=== PATIENT | male | born 1945 | race American Indian/Alaskan Native ===

== ENCOUNTER 2020-02-14 17:41 | Inpatient (IN) | payer MEDICARE ==
--- NOTE | 2020-02-14 19:14 | Emergency Department Report ---
- General Chief complaint: Altered Mental Status Stated complaint: ALTERED MENTAL STATUS PUI?: Yes Time Seen by Provider: 02/14/20 18:43 Source: patient, EMS Mode of arrival: Stretcher Limitations: Other - History of Present Illness Initial comments: Chief complaint: Decreased appetite HPI: This is a 75-year-old male with history of dementia schizoaffective disorder who presents with poor appetite. Patient is a resident of [facility] and for support. Patient seemed a little weak. He had not eaten food today. Due to multiple residents with COVID-19 exposures, medical staff wanted patient to be evaluated. Patient denies any discomfort. He denies any plaints. MD Complaint: generalized weakness, lack of energy -: Gradual, This morning Location: generalized Severity: mild Consistency: constant Improves with: none Worsens with: none Context: other (Multiple residents at retirement facility with COVID-19 infection) Associated Symptoms: denies other symptoms - Related Data Allergies Allergy/AdvReac Type Severity Reaction Status Date / Time No Known Allergies Allergy Unverified 02/14/20 19:43 ED Review of Systems ROS: Stated complaint: ALTERED MENTAL STATUS Other details as noted in HPI Comment: All other systems reviewed and negative Constitutional: denies: fever, malaise Respiratory: denies: cough Cardiovascular: denies: chest pain Gastrointestinal: denies: abdominal pain, nausea, vomiting Musculoskeletal: denies: back pain ED Past Medical Hx - Past Medical History Previous Medical History?: Yes Hx Hypertension: Yes Hx Psychiatric Treatment: Yes (Schizo affective) Hx Dementia: Yes - Social History Smoking Status: Never Smoker Substance Use Type: None ED Physical Exam - General Limitations: Other General appearance: alert, in no apparent distress, other (Alert, cooperative, pleasant, answers questions appropriately) - Head Head exam: Present: atraumatic, normocephalic - Eye Eye exam: Present: normal appearance - ENT ENT exam: Present: mucous membranes moist - Neck Neck exam: Present: normal inspection, full ROM - Respiratory Respiratory exam: Present: normal lung sounds bilaterally. Absent: respiratory distress, wheezes, rales - Cardiovascular Cardiovascular Exam: Present: regular rate, normal rhythm, normal heart sounds. Absent: systolic murmur, diastolic murmur, rubs, gallop - GI/Abdominal GI/Abdominal exam: Present: soft, normal bowel sounds. Absent: distended, tenderness, guarding, rebound - Rectal Rectal exam: Present: deferred - Extremities Exam Extremities exam: Present: normal inspection - Neurological Exam Neurological exam: Present: alert, other (Oriented to name and location) - Psychiatric Psychiatric exam: Present: normal mood, flat affect - Skin Skin exam: Present: warm, dry, intact, normal color. Absent: rash ED Course Vital Signs 02/14/20 19:30 Temperature 97.6 F Pulse Rate 71 Respiratory 20 Rate Blood Pressure 113/66 [Left] O2 Sat by Pulse 96 Oximetry ED Medical Decision Making - Lab Data Result diagrams: 02/14/20 19:24 02/14/20 19:24 - Radiology Data Radiology results: report reviewed XR chest 1V ap INDICATION / CLINICAL INFORMATION: hx of covid 19 exposure. COMPARISON: None FINDINGS: Heart size and pulmonary vasculature are within normal limits. There are patchy airspace opacities involving the right mid and lower lung, with a peripheral predominance. Left lung is essentially clear. There is no pleural effusion or pneumothorax. IMPRESSION: Patchy airspace opacity in the right mid and lower lung, most compatible with pneumonia. Findings are in keeping with reported history of COVID 19 exposure. - Medical Decision Making Mr. Valenzuela is a 75-year-old male with history of schizoaffective disorder dementia who presents with functional decline of the last day with poor appetite and generalized weakness. With multiple COVID-19 exposures at skilled nurse facility, patient does have multifocal pneumonia right and lower lobe infiltrates. Suspected COVID-19 infection. Patient will be admitted to the hospital service. Critical care attestation.: If time is entered above; I have spent that time in minutes in the direct care of this critically ill patient, excluding procedure time. ED Disposition Clinical Impression: Multifocal pneumonia, Suspected COVID-19 virus infection Disposition: OP ADMIT IP TO THIS HOSP Is pt being admited?: Yes Does the pt Need Aspirin: No Condition: Stable Instructions: Bacterial Pneumonia (ED) Referrals: [facility] [Other] - 3-5 Days
[2020-02-14 19:51] LABS: Basophils # (Auto) 0.1 K/mm3 (0.0-0.1); Basophils % (Auto) 1.1 % (0.0-1.8); Hemoglobin 12.1 gm/dl (11.8-15.2); Lymphocytes # (Auto) 0.4 K/mm3 (1.2-5.4); Lymphocytes % (Auto) 7.6 % (13.4-35.0); Mean Corpuscular HGB Conc 34 % (32-34); Mean Corpuscular Volume 86 fl (84-94); Monocytes # (Auto) 0.5 K/mm3 (0.0-0.8); Monocytes % (Auto) 11.1 % (0.0-7.3); Platelet Count 201 K/mm3 (140-440); Red Blood Count 4.19 M/mm3 (3.65-5.03)
--- NOTE | 2020-02-14 19:54 | XRay Report ---
XR chest 1V ap INDICATION / CLINICAL INFORMATION: hx of covid 19 exposure. COMPARISON: None FINDINGS: Heart size and pulmonary vasculature are within normal limits. There are patchy airspace opacities in volving the right mid and lower lung, with a peripheral predominance. Left lung is essentially clear. There is no pleural effusion or pneumothorax. IMPRESSION: Patchy airspace opacity in the right mid and lower lung, most compatible with pneumonia. Findings are in keeping with reported history of COVID 19 exposure. Signer Name: Joe Ayala MD Signed: 02/14/2020 7:50 PM Workstation Name: [id number]
[2020-02-14 20:16] LABS: BUN/Creatinine Ratio 20; Blood Urea Nitrogen 26 mg/dL (9-20); Calcium 8.3 mg/dL (8.4-10.2)
[2020-02-14 20:44] LABS: Bilirubin,Urine NEG (Negative); Blood,Urine SM (Negative); Color,Urine Yellow (Yellow); Mucus,Urine 1+ /HPF
[2020-02-14] MEDS ORDERED: cefTRIAXone/NS 1 GM/50 ML 1 GM/50 ML BAG IV ONE ×2 (22:37→23:29)
[2020-02-14] MEDS ORDERED: dexAMETHasone 20 MG/5 ML VIAL IV ONE (22:37)
[2020-02-14] MEDS ORDERED: ACETAMINOPHEN 325 MG TAB PO PRN (22:54)
[2020-02-14] MEDS ORDERED: MAGNESIUM HYDROXIDE (MOM) ORAL LIQD UDC PO PRN (22:54)
[2020-02-14] MEDS ORDERED: MORPHINE 2 MG/1 ML INJ IV PRN (22:54)
[2020-02-14] MEDS ORDERED: ONDANSETRON 4 MG/2 ML INJ IV PRN (22:54)
[2020-02-14] MEDS ORDERED: AZITHROMYCIN 500 MG in SODIUM CHLORIDE 0.9% 250ML 250 ML IV ONE (23:00)
--- NOTE | 2020-02-14 23:05 | History and Physical Report ---
History of Present Illness Date of examination: 02/14/20 Date of admission: 02/14/2020 Chief complaint: Generalized Weakness. History of present illness: 75-year-old male with known history of dementia, schizoaffective disorder presenting to the emergency room today with complaint of poor appetite. Patient is a resident of an assisted living facility [facility]. He has been feeling weak lately. He has also had decreased oral intake. Multiple residents was said to have been Covid 19 positive lately and therefore assisted living facility once patient evaluated for Covid. Patient is not a very good historian however he was able to answer questions appropriately. work-up in the emergency room today reveals multifocal pneumonia. Patient was started on empiric IV antibiotics and also to be ruled out for Covid. Past History Past Medical History: hypertension, other (Dementia,Schizoaffective disorder) Past Surgical History: No surgical history Social history: other (Resides in an assited living facility) Family history: no significant family history Medications and Allergies Allergies Allergy/AdvReac Type Severity Reaction Status Date / Time No Known Allergies Allergy Unverified 02/14/20 19:43 Active Meds: Active Medications Acetaminophen (Tylenol) 650 mg PO Q4H PRN PRN Reason: Pain MILD(1-3)/Fever >100.5/KNOWLES Enoxaparin Sodium (Enoxaparin) 40 mg SUB-Q QDAY@2200 KADEN; Protocol Azithromycin 500 mg/ Sodium (Chloride) 250 mls @ 250 mls/hr IV ONCE ONE; Protocol Stop: 02/14/20 23:59 Ceftriaxone Sodium (Rocephin/Ns 1 Gm/50 Ml) 1 gm in 50 mls @ 100 mls/hr IV ONCE ONE; Protocol Stop: 02/14/20 23:06 Sodium Chloride (Nacl 0.9% 1000 Ml) 1,000 mls @ 75 mls/hr IV DIRECT KADEN Ceftriaxone Sodium (Rocephin/Ns 2 Gm/100 Ml) 2 gm in 100 mls @ 200 mls/hr IV Q24HR KADEN; Protocol Azithromycin 500 mg/ Sodium (Chloride) 250 mls @ 250 mls/hr IV Q24HR KADEN; Protocol Magnesium Hydroxide (Milk Of Magnesia) 30 ml PO Q4H PRN PRN Reason: Constipation Morphine Sulfate (Morphine) 2 mg IV Q4H PRN PRN Reason: Pain, Moderate (4-6) Ondansetron HCl (Zofran) 4 mg IV Q8H PRN PRN Reason: Nausea And Vomiting Sodium Chloride (Sodium Chloride Flush Syringe 10 Ml) 10 ml IV BID KADEN Sodium Chloride (Sodium Chloride Flush Syringe 10 Ml) 10 ml IV PRN PRN PRN Reason: LINE FLUSH Review of Systems ROS unobtainable: due to mental status Constitutional: weakness, no fever, no chills, no night sweats Ears, nose, mouth and throat: no nasal congestion, no sore throat Cardiovascular: no chest pain, no palpitations Respiratory: no cough, no shortness of breath Gastrointestinal: no abdominal pain, no nausea, no vomiting, no diarrhea Genitourinary Male: no dysuria, no hematuria, no nocturia Musculoskeletal: no neck pain, no low back pain Integumentary: no rash, no pruritis Neurological: no headaches, no confusion Psychiatric: no anxiety, no depression Exam - Constitutional Vitals: Temp Pulse Resp BP Pulse Ox 97.6 F 71 20 113/66 96 02/14/20 19:30 02/14/20 19:30 02/14/20 19:30 02/14/20 19:30 02/14/20 19:30 General appearance: Present: no acute distress, well-nourished - EENT Eyes: Present: PERRL, EOM intact. Absent: scleral icterus ENT: hearing intact, clear oral mucosa, dentition normal - Neck Neck: Present: supple, normal ROM - Respiratory Respiratory effort: normal Respiratory: bilateral: rales (Bibasilar) - Cardiovascular Rhythm: regular Heart Sounds: Present: S1 & S2. Absent: systolic murmur, diastolic murmur, rub - Extremities Extremities: no ischemia, pulses intact, pulses symmetrical, No edema, Full ROM Peripheral Pulses: within normal limits - Abdominal General gastrointestinal: Present: soft, non-tender, non-distended, normal bowel sounds. Absent: mass - Integumentary Integumentary: Present: clear, warm, dry. Absent: rash - Musculoskeletal Musculoskeletal: strength equal bilaterally - Psychiatric Psychiatric: appropriate mood/affect, intact judgment & insight, memory intact, cooperative - Neurologic Neurologic: no focal deficits, moves all extremities, other (AOX2) Results - Labs CBC & Chem 7: 02/15/20 05:19 02/15/20 05:19 Labs: Abnormal lab results 02/14/20 02/14/20 Range/Units 19:24 19:24 RDW 13.0 L (13.2-15.2) % Lymph % (Auto) 7.6 L (13.4-35.0) % [place] % (Auto) 11.1 H (0.0-7.3) % Lymph # (Auto) 0.4 L (1.2-5.4) K/mm3 Seg Neutrophils % 80.2 H (40.0-70.0) % Sodium 134 L (137-145) mmol/L Chloride 95.3 L (98-107) mmol/L BUN 26 H (9-20) mg/dL Calcium 8.3 L (8.4-10.2) mg/dL Assessment and Plan - Patient Problems (1) Multifocal pneumonia Current Visit: Yes Status: Acute Plan to address problem: Patient placed on empiric IV antibiotics. We await blood culture results. (2) Suspected COVID-19 virus infection Current Visit: Yes Status: Acute Plan to address problem: Patient placed on isolation precautions. We will place consult to infectious disease for evaluation. (3) DVT prophylaxis Current Visit: Yes Status: Acute Plan to address problem: Patient placed on subcutaneous Lovenox. (4) Full code status Current Visit: Yes Status: Acute
[2020-02-14] MEDS ORDERED: dexAMETHasone 20 MG/5 ML VIAL ONE (23:29)
[2020-02-15 01:30] LABS: C-Reactive Protein 9.6 mg/dL (0.00-1.30)
[2020-02-15 06:21] LABS: BUN/Creatinine Ratio 22; Blood Urea Nitrogen 24 mg/dL (9-20); Calcium 8.3 mg/dL (8.4-10.2); Hemolysis Index 5
[2020-02-15 06:22] LABS: Basophils % (Auto) 0.2 % (0.0-1.8); Hematocrit 34.3 % (35.5-45.6); Hemoglobin 11.4 gm/dl (11.8-15.2); Lymphocytes # (Auto) 0.5 K/mm3 (1.2-5.4); Lymphocytes % (Auto) 11.4 % (13.4-35.0); Mean Corpuscular HGB Conc 33 % (32-34); Mean Corpuscular Volume 86 fl (84-94); Monocytes # (Auto) 0.2 K/mm3 (0.0-0.8); Monocytes % (Auto) 6.1 % (0.0-7.3); Platelet Count 206 K/mm3 (140-440); Red Blood Count 3.98 M/mm3 (3.65-5.03); Red Cell Distribution Width 13.4 % (13.2-15.2)
[2020-02-15 06:32] LABS: INR 1.04 (0.87-1.13)
[2020-02-15] MEDS: cefTRIAXone/NS 2 GM/100 ML 2 GM/100 ML BAG IV SCH (11:01)
[2020-02-15] MEDS: SODIUM CHLORIDE 0.9% 1000 ML 1,000 ML IV SCH (11:01)
[2020-02-15] MEDS: AZITHROMYCIN 500 MG in SODIUM CHLORIDE 0.9% 250ML 250 ML IV SCH (12:31)
--- NOTE | 2020-02-15 14:43 | Consultation ---
History of Present Illness - Reason for Consult Consult date: 02/15/20 COVID-19 Requesting physician: ARAVIND GEORGES - History of Present Illness The patient is a 75-year-old with dementia, schizoaffective disorder, resident of an assisted living facility was admitted to the hospital with decreased appetite. There has been a Covid 19 outbreak there. Work-up in the emergency room was concerning for multifocal pneumonia. COVID-19 test came back positive, hence infectious diseases was consulted for additional evaluation. Patient is afebrile. He is on oxygen by nasal cannula at 2 L/min. Labs revealed procalcitonin 0.32, CRP 9.6, ferritin 1839 Review of Systems: reviewed in the chart, unable to obtain directly due to PPE preservation and minimize risk of transmission Past History Past Medical History: hypertension, other (Dementia,Schizoaffective disorder) Past Surgical History: No surgical history Social history: other (Resides in an assited living facility) Family history: no significant family history Medications and Allergies Allergies Allergy/AdvReac Type Severity Reaction Status Date / Time No Known Allergies Allergy Unverified 02/14/20 19:43 Active Meds: Active Medications Acetaminophen (Tylenol) 650 mg PO Q4H PRN PRN Reason: Pain MILD(1-3)/Fever >100.5/KNOWLES Dexamethasone (Decadron) 6 mg IV DAILY KADEN Stop: 02/25/20 10:01 Enoxaparin Sodium (Enoxaparin) 40 mg SUB-Q QDAY@2200 KADEN; Protocol Sodium Chloride (Nacl 0.9% 1000 Ml) 1,000 mls @ 75 mls/hr IV DIRECT KADEN Last Admin: 02/15/20 11:01 Dose: 75 mls/hr Documented by: Ceftriaxone Sodium (Rocephin/Ns 2 Gm/100 Ml) 2 gm in 100 mls @ 200 mls/hr IV Q24HR KADEN; Protocol Last Admin: 02/15/20 11:01 Dose: 200 mls/hr Documented by: Azithromycin 500 mg/ Sodium (Chloride) 250 mls @ 250 mls/hr IV Q24HR KADEN; Protocol Last Admin: 02/15/20 12:31 Dose: 250 mls/hr Documented by: Magnesium Hydroxide (Milk Of Magnesia) 30 ml PO Q4H PRN PRN Reason: Constipation Morphine Sulfate (Morphine) 2 mg IV Q4H PRN PRN Reason: Pain, Moderate (4-6) Ondansetron HCl (Zofran) 4 mg IV Q8H PRN PRN Reason: Nausea And Vomiting Sodium Chloride (Sodium Chloride Flush Syringe 10 Ml) 10 ml IV BID KADEN Last Admin: 02/15/20 11:01 Dose: 10 ml Documented by: Sodium Chloride (Sodium Chloride Flush Syringe 10 Ml) 10 ml IV PRN PRN PRN Reason: LINE FLUSH Physical Examination - Physical Exam Narrative exam: Physical Exam (reviewed in chart due to PPE conservation and minimize risk of transmission) Constitutional: limited due to PPE conservation strategy Head, Ears, Nose: limited due to PPE conservation strategy Eyes: limited due to PPE conservation strategy Neck: limited due to PPE conservation strategy Oral: limited due to PPE conservation strategy Cardiovascular: limited due to PPE conservation strategy Respiratory: limited due to PPE conservation strategy GI: limited due to PPE conservation strategy Musculoskeletal: limited due to PPE conservation strategy Skin: limited due to PPE conservation strategy Hem/Lymphatic: limited due to PPE conservation strategy Psych: limited due to PPE conservation strategy Neurological: limited due to PPE conservation strategy - Constitutional Vitals: Vital Signs Temp Pulse Resp BP Pulse Ox 97.3 F L 69 20 121/74 96 02/15/20 11:51 02/15/20 11:51 02/15/20 11:51 02/15/20 11:51 02/15/20 11:51 Temperature -Last 24 Hours Temperature 97.3 F Temperature 97.6 F Results - Labs CBC & Chem 7: 02/15/20 05:19 02/15/20 05:19 Labs: Abnormal lab results 02/14/20 02/14/20 02/14/20 Range/Units 19:24 19:24 23:12 WBC (4.5-11.0) K/mm3 Hgb (11.8-15.2) gm/dl Hct (35.5-45.6) % RDW 13.0 L (13.2-15.2) % Lymph % (Auto) 7.6 L (13.4-35.0) % [place] % (Auto) 11.1 H (0.0-7.3) % Lymph # (Auto) 0.4 L (1.2-5.4) K/mm3 Seg Neutrophils % 80.2 H (40.0-70.0) % D-Dimer 315.95 H (0-234) ng/mlDDU Sodium 134 L (137-145) mmol/L Chloride 95.3 L (98-107) mmol/L BUN 26 H (9-20) mg/dL Glucose (75-100) mg/dL Calcium 8.3 L (8.4-10.2) mg/dL Ferritin (30.0-300.0) ng/mL Lactate Dehydrogenase (91-180) units/L C-Reactive Protein (0.00-1.30) mg/dL Coronavirus (PCR) (Negative) 02/14/20 02/14/20 02/15/20 Range/Units 23:12 23:12 05:19 WBC 4.0 L (4.5-11.0) K/mm3 Hgb 11.4 L (11.8-15.2) gm/dl Hct 34.3 L (35.5-45.6) % RDW (13.2-15.2) % Lymph % (Auto) 11.4 L (13.4-35.0) % [place] % (Auto) (0.0-7.3) % Lymph # (Auto) 0.5 L (1.2-5.4) K/mm3 Seg Neutrophils % 82.3 H (40.0-70.0) % D-Dimer (0-234) ng/mlDDU Sodium (137-145) mmol/L Chloride (98-107) mmol/L BUN (9-20) mg/dL Glucose 74 L (75-100) mg/dL Calcium (8.4-10.2) mg/dL Ferritin 1839.0 H (30.0-300.0) ng/mL Lactate Dehydrogenase 249 H (91-180) units/L C-Reactive Protein 9.60 H (0.00-1.30) mg/dL Coronavirus (PCR) (Negative) 02/15/20 02/15/20 Range/Units 05:19 Unknown WBC (4.5-11.0) K/mm3 Hgb (11.8-15.2) gm/dl Hct (35.5-45.6) % RDW (13.2-15.2) % Lymph % (Auto) (13.4-35.0) % [place] % (Auto) (0.0-7.3) % Lymph # (Auto) (1.2-5.4) K/mm3 Seg Neutrophils % (40.0-70.0) % D-Dimer (0-234) ng/mlDDU Sodium (137-145) mmol/L Chloride (98-107) mmol/L BUN 24 H (9-20) mg/dL Glucose 107 H (75-100) mg/dL Calcium 8.3 L (8.4-10.2) mg/dL Ferritin (30.0-300.0) ng/mL Lactate Dehydrogenase (91-180) units/L C-Reactive Protein (0.00-1.30) mg/dL Coronavirus (PCR) Positive A (Negative) - Imaging and Cardiology Chest x-ray: report reviewed, image reviewed (patchy air space disease) Assessment and Plan Cultures: Coronavirus PCR: Positive 02/15/2020 blood culture: In process A/P: 75-year-old with dementia, schizoaffective disorder, resident of an assisted living facility was admitted to the hospital with decreased appetite. There has been a Covid 19 outbreak there: #Bilateral pneumonia: Secondary to COVID-19 #Acute hypoxic respiratory failure: On oxygen #Leukopenia: Likely secondary to COVID-19 Recs: IV/PO Dexamethasone 6 mg daily x 10 days IV remdesivir ordered for 5 days Continue empiric antibiotics for now, recheck procalcitonin tomorrow prophylactic anticoagulation based on d-dimer trend ferritin, d-dimer, CRP every 2-3 days for risk stratification and to asses s disease progression Nader Tapia MD, FACP [facility] ([facility] O: [phone] F: [phone]
[2020-02-15] MEDS ORDERED: REMDESIVIR 200 MG in SODIUM CHLORIDE 0.9% 250ML 250 ML IV ONE (17:00)
[2020-02-15] MEDS ORDERED: REMDESIVIR 100 MG VIAL IV ONE (17:00)
--- NOTE | 2020-02-15 17:28 | Progress Note ---
Assessment and Plan Assessment and plan: --Covid 19 positive --Covid positive multifocal pneumonia; Continue empiric antibiotics Follow cultures, supportive care Oxygen titrate O2 sats to more than 90% Home oxygen evaluation at discharge --PUI/high suspicion for COVID-19 positive COVID-19 test positive Contact and droplet isolation Follow inflammatory markers ID following --Acute hypoxic respiratory failure; requiring oxygen Closely monitor, titrate O2 sats to more than 90% Evaluate for home oxygen at discharge --DVT prophylaxis; Lovenox --Full CODE STATUS We will closely monitor the patient and adjust management as needed Plan of care reviewed with the patient and his nurse History Interval history: I have seen and examined the patient at the bedside Patient's chart and medications reviewed Patient is confused, minimally communicative Vital signs reviewed Covid PCR positive Hospitalist Physical - Constitutional Vitals: Temp Pulse Resp BP Pulse Ox 97.3 F L 69 20 121/74 96 02/15/20 11:51 02/15/20 11:51 02/15/20 11:51 02/15/20 11:51 02/15/20 11:51 General appearance: Present: no acute distress, well-nourished - EENT Eyes: Present: PERRL, EOM intact - Neck Neck: Present: supple, normal ROM - Respiratory Respiratory effort: normal Respiratory: bilateral: diminished, rhonchi, negative: rales, wheezing - Cardiovascular Rhythm: regular Heart Sounds: Present: S1 & S2 - Extremities Extremities: no ischemia, No edema - Abdominal General gastrointestinal: soft, non-tender, non-distended - Integumentary Integumentary: Present: clear, warm - Psychiatric Psychiatric: appropriate mood/affect, other (Confused) - Neurologic Neurologic: moves all extremities Results - Labs CBC & Chem 7: 02/15/20 05:19 02/15/20 05:19 Labs: Laboratory Last Values WBC 4.0 K/mm3 (4.5-11.0) L 02/15/20 05:19 RBC 3.98 M/mm3 (3.65-5.03) 02/15/20 05:19 Hgb 11.4 gm/dl (11.8-15.2) L 02/15/20 05:19 Hct 34.3 % (35.5-45.6) L 02/15/20 05:19 MCV 86 fl (84-94) 02/15/20 05:19 MCH 29 pg (28-32) 02/15/20 05:19 MCHC 33 % (32-34) 02/15/20 05:19 RDW 13.4 % (13.2-15.2) 02/15/20 05:19 Plt Count 206 K/mm3 (140-440) 02/15/20 05:19 Lymph % (Auto) 11.4 % (13.4-35.0) L 02/15/20 05:19 [place] % (Auto) 6.1 % (0.0-7.3) 02/15/20 05:19 Eos % (Auto) 0.0 % (0.0-4.3) 02/15/20 05:19 Baso % (Auto) 0.2 % (0.0-1.8) 02/15/20 05:19 Lymph # (Auto) 0.5 K/mm3 (1.2-5.4) L 02/15/20 05:19 [place] # (Auto) 0.2 K/mm3 (0.0-0.8) 02/15/20 05:19 Eos # (Auto) 0.0 K/mm3 (0.0-0.4) 02/15/20 05:19 Baso # (Auto) 0.0 K/mm3 (0.0-0.1) 02/15/20 05:19 Seg Neutrophils % 82.3 % (40.0-70.0) H 02/15/20 05:19 Seg Neutrophils # 3.3 K/mm3 (1.8-7.7) 02/15/20 05:19 PT 13.7 Sec. (12.2-14.9) 02/15/20 05:19 INR 1.04 (0.87-1.13) 02/15/20 05:19 D-Dimer 315.95 ng/mlDDU (0-234) H 02/14/20 23:12 Sodium 137 mmol/L (137-145) 02/15/20 05:19 Potassium 4.2 mmol/L (3.6-5.0) 02/15/20 05:19 Chloride 99.9 mmol/L (98-107) 02/15/20 05:19 Carbon Dioxide 25 mmol/L (22-30) 02/15/20 05:19 Anion Gap 16 mmol/L 02/15/20 05:19 BUN 24 mg/dL (9-20) H 02/15/20 05:19 Creatinine 1.1 mg/dL (0.8-1.3) 02/15/20 05:19 Estimated GFR > 60 ml/min 02/15/20 05:19 BUN/Creatinine Ratio 22 % 02/15/20 05:19 Glucose 107 mg/dL (75-100) H 02/15/20 05:19 Calcium 8.3 mg/dL (8.4-10.2) L 02/15/20 05:19 Ferritin 1839.0 ng/mL (30.0-300.0) H 02/14/20 23:12 Lactate Dehydrogenase 249 units/L (91-180) H 02/14/20 23:12 C-Reactive Protein 9.60 mg/dL (0.00-1.30) H 02/14/20 23:12 Procalcitonin 0.32 ng/mL (<0.15) 02/14/20 23:12 Urine Color Yellow (Yellow) 02/14/20 20:16 Urine Turbidity Slightly-cloudy (Clear) 02/14/20 20:16 Urine pH 5.0 (5.0-7.0) 02/14/20 20:16 Ur Specific [place] 1.019 (1.003-1.030) 02/14/20 20:16 Urine Protein 100 mg/dl mg/dL (Negative) 02/14/20 20:16 Urine Glucose (UA) Neg mg/dL (Negative) 02/14/20 20:16 Urine Ketones Tr mg/dL (Negative) 02/14/20 20:16 Urine Blood Sm (Negative) 02/14/20 20:16 Urine Nitrite Neg (Negative) 02/14/20 20:16 Urine Bilirubin Neg (Negative) 02/14/20 20:16 Urine Urobilinogen 2.0 mg/dL (<2.0) 02/14/20 20:16 Ur Leukocyte Esterase Neg (Negative) 02/14/20 20:16 Urine WBC (Auto) 4.0 /HPF (0.0-6.0) 02/14/20 20:16 Urine RBC (Auto) 4.0 /HPF (0.0-6.0) 02/14/20 20:16 U Epithel Cells (Auto) < 1.0 /HPF (0-13.0) 02/14/20 20:16 Urine Mucus 1+ /HPF 02/14/20 20:16 Coronavirus (PCR) Positive (Negative) A 02/15/20 Unknown Microbiology: Microbiology 02/15/20 01:13 Peripheral/Venous Blood Culture - Preliminary Culture in Progress 02/15/20 01:09 Peripheral/Venous Blood Culture - Preliminary Culture in Progress Berg/IV: Voiding Method Diaper IV Catheter Type [Left Forearm INT / Saline Lock ] Active Medications - Current Medications Current Medications: Generic Name Dose Route Start Last Admin Trade Name Freq PRN Reason Stop Dose Admin Acetaminophen 650 mg 02/14/20 22:54 Tylenol PO Q4H PRN Pain MILD(1-3)/Fever >100.5/KNOWLES Dexamethasone 6 mg 02/16/20 10:00 Decadron IV 02/25/20 10:01 DAILY KADEN Enoxaparin Sodium 40 mg 02/15/20 22:00 Enoxaparin SUB-Q QDAY@[facility]00 [facility] Protocol Sodium Chloride 1,000 mls @ 75 mls/hr 02/14/20 23:00 02/15/20 11:01 Nacl 0.9% 1000 Ml IV 75 mls/hr DIRECT KADEN Administration Ceftriaxone Sodium 2 gm in 100 mls @ 200 mls/hr 02/15/20 10:00 02/15/20 11:01 Rocephin/Ns 2 Gm/100 Ml IV 200 mls/hr Q24HR KADEN Administration Protocol Azithromycin 500 mg/ Sodium 250 mls @ 250 mls/hr 02/15/20 10:00 02/15/20 12:31 Chloride IV 250 mls/hr Q24HR KADEN Administration Protocol REMDESIVIR 200 mg/ Sodium 250 mls @ 500 mls/hr 02/15/20 17:00 02/15/20 16:23 Chloride IV 02/15/20 17:29 500 mls/hr ONCE ONE Administration REMDESIVIR 100 mg/ Sodium 250 mls @ 500 mls/hr 02/16/20 21:00 Chloride IV 02/19/20 21:29 Q24HR@2100 KADEN Magnesium Hydroxide 30 ml 02/14/20 22:54 Milk Of Magnesia PO Q4H PRN Constipation Morphine Sulfate 2 mg 02/14/20 22:54 Morphine IV Q4H PRN Pain, Moderate (4-6) Ondansetron HCl 4 mg 02/14/20 22:54 Zofran IV Q8H PRN Nausea And Vomiting Sodium Chloride 10 ml 02/15/20 10:00 02/15/20 11:01 Sodium Chloride Flush Syringe 10 Ml IV 10 ml BID KADEN Administration Sodium Chloride 10 ml 02/14/20 22:54 Sodium Chloride Flush Syringe 10 Ml IV PRN PRN LINE FLUSH Sodium Chloride 50 ml 02/15/20 17:00 Nacl 0.9% IV 02/19/20 21:01 Q24HR@2100 KADEN
[2020-02-15] MEDS: SODIUM CHLORIDE 0.9% 50 ML IVPB IV SCH (17:41)
[2020-02-15] MEDS: ENOXAPARIN 40 MG/0.4 ML INJ SUB-Q SCH (22:13)
[2020-02-16 06:38] LABS: Alanine Aminotransferase 11 units/L (7-56); Albumin 3.5 g/dL (3.9-5)
[2020-02-16 06:54] LABS: Bilirubin,Direct < 0.2 mg/dL (0-0.2)
[2020-02-16] MEDS: AZITHROMYCIN 500 MG in SODIUM CHLORIDE 0.9% 250ML 250 ML IV SCH (09:27)
[2020-02-16] MEDS: cefTRIAXone/NS 2 GM/100 ML 2 GM/100 ML BAG IV SCH (09:27)
[2020-02-16] MEDS ORDERED: dexAMETHasone 4 MG/ML VIAL IV SCH (10:00)
--- NOTE | 2020-02-16 11:15 | Progress Note ---
Assessment and Plan Assessment and plan: --Covid 19 positive 02/15/2020 Isolation precautions and PPE protocols --Acute hypoxic respiratory failure; requiring oxygen Closely monitor, titrate O2 sats to more than 90% Evaluate for home oxygen at discharge --Covid positive multifocal pneumonia; Continue empiric antibiotics Follow cultures, supportive care Oxygen titrate O2 sats to more than 90% Home oxygen evaluation at discharge --PUI/high suspicion for COVID-19 positive Contact and droplet isolation IV dexamethasone for total 10 days IV remdesivir total 5 doses Follow inflammatory markers ID following --DVT prophylaxis; Lovenox --Full CODE STATUS We will closely monitor the patient and adjust management as needed Plan of care reviewed with the patient and his nurse History Interval history: I have seen and examined the patient in his room this morning Isolation precautions, PPE protocol strictly followed Patient feels better, Afebrile, vital signs reviewed Hospitalist Physical - Constitutional Vitals: Temp Pulse Resp BP Pulse Ox 97.2 F L 56 L 18 107/55 99 02/16/20 04:19 02/16/20 04:19 02/16/20 04:19 02/16/20 04:19 02/16/20 04:19 General appearance: Present: no acute distress, well-nourished - EENT Eyes: Present: PERRL, EOM intact - Neck Neck: Present: supple, normal ROM - Respiratory Respiratory effort: normal Respiratory: bilateral: diminished, rhonchi, negative: rales, wheezing - Cardiovascular Rhythm: regular Heart Sounds: Present: S1 & S2 - Extremities Extremities: no ischemia, No edema - Abdominal General gastrointestinal: soft, non-tender, non-distended, normal bowel sounds - Integumentary Integumentary: Present: clear, warm - Psychiatric Psychiatric: appropriate mood/affect, cooperative - Neurologic Neurologic: CNII-XII intact, moves all extremities Results - Labs CBC & Chem 7: 02/15/20 05:19 02/15/20 05:19 Labs: Laboratory Last Values WBC 4.0 K/mm3 (4.5-11.0) L 02/15/20 05:19 RBC 3.98 M/mm3 (3.65-5.03) 02/15/20 05:19 Hgb 11.4 gm/dl (11.8-15.2) L 02/15/20 05:19 Hct 34.3 % (35.5-45.6) L 02/15/20 05:19 MCV 86 fl (84-94) 02/15/20 05:19 MCH 29 pg (28-32) 02/15/20 05:19 MCHC 33 % (32-34) 02/15/20 05:19 RDW 13.4 % (13.2-15.2) 02/15/20 05:19 Plt Count 206 K/mm3 (140-440) 02/15/20 05:19 Lymph % (Auto) 11.4 % (13.4-35.0) L 02/15/20 05:19 [place] % (Auto) 6.1 % (0.0-7.3) 02/15/20 05:19 Eos % (Auto) 0.0 % (0.0-4.3) 02/15/20 05:19 Baso % (Auto) 0.2 % (0.0-1.8) 02/15/20 05:19 Lymph # (Auto) 0.5 K/mm3 (1.2-5.4) L 02/15/20 05:19 [place] # (Auto) 0.2 K/mm3 (0.0-0.8) 02/15/20 05:19 Eos # (Auto) 0.0 K/mm3 (0.0-0.4) 02/15/20 05:19 Baso # (Auto) 0.0 K/mm3 (0.0-0.1) 02/15/20 05:19 Seg Neutrophils % 82.3 % (40.0-70.0) H 02/15/20 05:19 Seg Neutrophils # 3.3 K/mm3 (1.8-7.7) 02/15/20 05:19 PT 13.7 Sec. (12.2-14.9) 02/15/20 05:19 INR 1.04 (0.87-1.13) 02/15/20 05:19 D-Dimer 315.95 ng/mlDDU (0-234) H 02/14/20 23:12 Sodium 137 mmol/L (137-145) 02/15/20 05:19 Potassium 4.2 mmol/L (3.6-5.0) 02/15/20 05:19 Chloride 99.9 mmol/L (98-107) 02/15/20 05:19 Carbon Dioxide 25 mmol/L (22-30) 02/15/20 05:19 Anion Gap 16 mmol/L 02/15/20 05:19 BUN 24 mg/dL (9-20) H 02/15/20 05:19 Creatinine 1.1 mg/dL (0.8-1.3) 02/15/20 05:19 Estimated GFR > 60 ml/min 02/15/20 05:19 BUN/Creatinine Ratio 22 % 02/15/20 05:19 Glucose 107 mg/dL (75-100) H 02/15/20 05:19 Calcium 8.3 mg/dL (8.4-10.2) L 02/15/20 05:19 Ferritin 1839.0 ng/mL (30.0-300.0) H 02/14/20 23:12 Total Bilirubin 0.20 mg/dL (0.1-1.2) 02/16/20 05:52 Direct Bilirubin < 0.2 mg/dL (0-0.2) 02/16/20 05:52 AST 27 units/L (5-40) 02/16/20 05:52 ALT 11 units/L (7-56) 02/16/20 05:52 Alkaline Phosphatase 68 units/L (35-129) 02/16/20 05:52 Lactate Dehydrogenase 249 units/L (91-180) H 02/14/20 23:12 C-Reactive Protein 9.60 mg/dL (0.00-1.30) H 02/14/20 23:12 Total Protein 6.4 g/dL (6.3-8.2) 02/16/20 05:52 Albumin 3.5 g/dL (3.9-5) L 02/16/20 05:52 Albumin/Globulin Ratio 1.2 % 02/16/20 05:52 Procalcitonin 0.22 ng/mL (<0.15) 02/16/20 05:52 Urine Color Yellow (Yellow) 02/14/20 20:16 Urine Turbidity Slightly-cloudy (Clear) 02/14/20 20:16 Urine pH 5.0 (5.0-7.0) 02/14/20 20:16 Ur Specific [place] 1.019 (1.003-1.030) 02/14/20 20:16 Urine Protein 100 mg/dl mg/dL (Negative) 02/14/20 20:16 Urine Glucose (UA) Neg mg/dL (Negative) 02/14/20 20:16 Urine Ketones Tr mg/dL (Negative) 02/14/20 20:16 Urine Blood Sm (Negative) 02/14/20 20:16 Urine Nitrite Neg (Negative) 02/14/20 20:16 Urine Bilirubin Neg (Negative) 02/14/20 20:16 Urine Urobilinogen 2.0 mg/dL (<2.0) 02/14/20 20:16 Ur Leukocyte Esterase Neg (Negative) 02/14/20 20:16 Urine WBC (Auto) 4.0 /HPF (0.0-6.0) 02/14/20 20:16 Urine RBC (Auto) 4.0 /HPF (0.0-6.0) 02/14/20 20:16 U Epithel Cells (Auto) < 1.0 /HPF (0-13.0) 02/14/20 20:16 Urine Mucus 1+ /HPF 02/14/20 20:16 Coronavirus (PCR) Positive (Negative) A 02/15/20 Unknown Microbiology: Microbiology 02/15/20 01:13 Peripheral/Venous Blood Culture - Preliminary NO GROWTH AFTER 24 HOURS 02/15/20 01:09 Peripheral/Venous Blood Culture - Preliminary NO GROWTH AFTER 24 HOURS Berg/IV: Voiding Method Diaper IV Catheter Type [Left Forearm INT / Saline Lock ] Active Medications - Current Medications Current Medications: Generic Name Dose Route Start Last Admin Trade Name Freq PRN Reason Stop Dose Admin Acetaminophen 650 mg 02/14/20 22:54 Tylenol PO Q4H PRN Pain MILD(1-3)/Fever >100.5/KNOWLES Dexamethasone 6 mg 02/16/20 10:00 02/16/20 09:28 Decadron IV 02/25/20 10:01 6 mg DAILY KADEN Administration Enoxaparin Sodium 40 mg 02/15/20 22:00 02/15/20 22:13 Enoxaparin SUB-Q 40 mg QDAY@2200 KADEN Administration Protocol Sodium Chloride 1,000 mls @ 75 mls/hr 02/14/20 23:00 02/15/20 11:01 Nacl 0.9% 1000 Ml IV 75 mls/hr DIRECT KADEN Administration Ceftriaxone Sodium 2 gm in 100 mls @ 200 mls/hr 02/15/20 10:00 02/16/20 09:27 Rocephin/Ns 2 Gm/100 Ml IV 200 mls/hr Q24HR KADEN Administration Protocol Azithromycin 500 mg/ Sodium 250 mls @ 250 mls/hr 02/15/20 10:00 02/16/20 09:27 Chloride IV 02/18/20 10:59 250 mls/hr Q24HR KADEN Administration Protocol REMDESIVIR 100 mg/ Sodium 250 mls @ 500 mls/hr 02/16/20 21:00 Chloride IV 02/19/20 21:29 Q24HR@2100 KADEN Magnesium Hydroxide 30 ml 02/14/20 22:54 Milk Of Magnesia PO Q4H PRN Constipation Morphine Sulfate 2 mg 02/14/20 22:54 Morphine IV Q4H PRN Pain, Moderate (4-6) Ondansetron HCl 4 mg 02/14/20 22:54 Zofran IV Q8H PRN Nausea And Vomiting Sodium Chloride 10 ml 02/15/20 10:00 02/16/20 09:28 Sodium Chloride Flush Syringe 10 Ml IV 10 ml BID KADEN Administration Sodium Chloride 10 ml 02/14/20 22:54 Sodium Chloride Flush Syringe 10 Ml IV PRN PRN LINE FLUSH Sodium Chloride 50 ml 02/15/20 17:00 02/15/20 17:41 Nacl 0.9% IV 02/19/20 21:01 50 ml Q24HR@2100 KADEN Administration
--- NOTE | 2020-02-16 13:13 | Progress Note ---
Assessment and Plan Cultures: Coronavirus PCR: Positive 02/15/2020 blood culture: no growth thus far A/P: 75-year-old with dementia, schizoaffective disorder, resident of an assisted living facility was admitted to the hospital with decreased appetite. There has been a Covid 19 outbreak there: #Bilateral pneumonia: Secondary to COVID-19 #Acute hypoxic respiratory failure: On oxygen #Leukopenia: Likely secondary to COVID-19 Recs: continue IV/PO Dexamethasone 6 mg daily x 10 days IV remdesivir, D2 Continue empiric antibiotics, recheck procalcitonin is better, plan to stop tomorrow prophylactic anticoagulation based on d-dimer trend ferritin, d-dimer, CRP every 2-3 days for risk stratification and to assess disease progression Nader Tapia MD, FACP [facility], [place] ([facility] O: [phone] F: [phone] Subjective Date of service: 02/16/20 Interval history: No fever. On stable oxygen requirements. Objective - Exam Narrative Exam: Physical Exam (reviewed in chart due to PPE conservation and minimize risk of transmission) Constitutional: limited due to PPE conservation strategy Head, Ears, Nose: limited due to PPE conservation strategy Eyes: limited due to PPE conservation strategy Neck: limited due to PPE conservation strategy Oral: limited due to PPE conservation strategy Cardiovascular: limited due to PPE conservation strategy Respiratory: limited due to PPE conservation strategy GI: limited due to PPE conservation strategy Musculoskeletal: limited due to PPE conservation strategy Skin: limited due to PPE conservation strategy Hem/Lymphatic: limited due to PPE conservation strategy Psych: limited due to PPE conservation strategy Neurological: limited due to PPE conservation strategy - Constitutional Vitals: Vital Signs Temp Pulse Resp BP Pulse Ox 97.2 F L 56 L 18 107/55 99 02/16/20 04:19 02/16/20 04:19 02/16/20 04:19 02/16/20 04:19 02/16/20 04:19 Temperature -Last 24 Hours Temperature 97.2 F Temperature 98.9 F - Labs CBC & Chem 7: 02/15/20 05:19 02/15/20 05:19 Labs: Abnormal lab results 02/15/20 02/16/20 Range/Units Unknown 05:52 Albumin 3.5 L (3.9-5) g/dL Coronavirus (PCR) Positive A (Negative)
[2020-02-16] MEDS: REMDESIVIR 100 MG in SODIUM CHLORIDE 0.9% 250ML 250 ML IV SCH (21:34)
[2020-02-16] MEDS: ENOXAPARIN 40 MG/0.4 ML INJ SUB-Q SCH (21:34)
[2020-02-16] MEDS: SODIUM CHLORIDE 0.9% 50 ML IVPB IV SCH (21:34)
[2020-02-17] MEDS: SODIUM CHLORIDE 0.9% 1000 ML 1,000 ML IV SCH (05:42)
[2020-02-17 07:16] LABS: C-Reactive Protein 3.2 mg/dL (0.00-1.30)
--- NOTE | 2020-02-17 09:42 | Progress Note ---
Assessment and Plan Assessment and plan: --Covid 19 positive 02/15/2020 Isolation precautions and PPE protocols --Covid positive multifocal pneumonia; Continue empiric antibiotics Follow cultures, supportive care Oxygen titrate O2 sats to more than 90% Home oxygen evaluation at discharge --Acute hypoxic respiratory failure; requiring oxygen Closely monitor, titrate O2 sats to more than 90% Evaluate for home oxygen at discharge --PUI/high suspicion for COVID-19 positive Contact and droplet isolation IV dexamethasone for total 10 days IV remdesivir total 5 doses Follow inflammatory markers ID following --DVT prophylaxis; Lovenox --Full CODE STATUS We will closely monitor the patient and adjust management as needed Plan of care reviewed with the patient and his nurse History Interval history: I have seen and examined the patient in his room at bedside this morning Isolation precautions, PPE protocol strictly followed Patient is alert and awake, confused Trying to eat some breakfast with the help of the nurse Vital signs reviewed Hospitalist Physical - Constitutional Vitals: Temp Pulse Resp BP Pulse Ox 99.2 F 78 18 154/90 96 02/17/20 05:37 02/17/20 05:37 02/17/20 05:37 02/17/20 05:37 02/17/20 05:37 General appearance: Present: no acute distress, well-nourished, other (Confused at times) - EENT Eyes: Present: PERRL, EOM intact - Neck Neck: Present: supple, normal ROM - Respiratory Respiratory effort: normal Respiratory: bilateral: diminished, rhonchi, negative: rales, wheezing - Cardiovascular Rhythm: regular Heart Sounds: Present: S1 & S2 - Extremities Extremities: no ischemia, No edema - Abdominal General gastrointestinal: soft, non-tender, non-distended, normal bowel sounds - Integumentary Integumentary: Present: clear, warm - Psychiatric Psychiatric: cooperative, other (Confused at times) - Neurologic Neurologic: moves all extremities Results - Labs CBC & Chem 7: 02/15/20 05:19 02/15/20 05:19 Labs: Laboratory Last Values WBC 4.0 K/mm3 (4.5-11.0) L 02/15/20 05:19 RBC 3.98 M/mm3 (3.65-5.03) 02/15/20 05:19 Hgb 11.4 gm/dl (11.8-15.2) L 02/15/20 05:19 Hct 34.3 % (35.5-45.6) L 02/15/20 05:19 MCV 86 fl (84-94) 02/15/20 05:19 MCH 29 pg (28-32) 02/15/20 05:19 MCHC 33 % (32-34) 02/15/20 05:19 RDW 13.4 % (13.2-15.2) 02/15/20 05:19 Plt Count 206 K/mm3 (140-440) 02/15/20 05:19 Lymph % (Auto) 11.4 % (13.4-35.0) L 02/15/20 05:19 [place] % (Auto) 6.1 % (0.0-7.3) 02/15/20 05:19 Eos % (Auto) 0.0 % (0.0-4.3) 02/15/20 05:19 Baso % (Auto) 0.2 % (0.0-1.8) 02/15/20 05:19 Lymph # (Auto) 0.5 K/mm3 (1.2-5.4) L 02/15/20 05:19 [place] # (Auto) 0.2 K/mm3 (0.0-0.8) 02/15/20 05:19 Eos # (Auto) 0.0 K/mm3 (0.0-0.4) 02/15/20 05:19 Baso # (Auto) 0.0 K/mm3 (0.0-0.1) 02/15/20 05:19 Seg Neutrophils % 82.3 % (40.0-70.0) H 02/15/20 05:19 Seg Neutrophils # 3.3 K/mm3 (1.8-7.7) 02/15/20 05:19 PT 13.7 Sec. (12.2-14.9) 02/15/20 05:19 INR 1.04 (0.87-1.13) 02/15/20 05:19 D-Dimer 387.15 ng/mlDDU (0-234) H 02/17/20 04:37 Sodium 137 mmol/L (137-145) 02/15/20 05:19 Potassium 4.2 mmol/L (3.6-5.0) 02/15/20 05:19 Chloride 99.9 mmol/L (98-107) 02/15/20 05:19 Carbon Dioxide 25 mmol/L (22-30) 02/15/20 05:19 Anion Gap 16 mmol/L 02/15/20 05:19 BUN 24 mg/dL (9-20) H 02/15/20 05:19 Creatinine 1.1 mg/dL (0.8-1.3) 02/15/20 05:19 Estimated GFR > 60 ml/min 02/15/20 05:19 BUN/Creatinine Ratio 22 % 02/15/20 05:19 Glucose 107 mg/dL (75-100) H 02/15/20 05:19 Calcium 8.3 mg/dL (8.4-10.2) L 02/15/20 05:19 Ferritin 1968.0 ng/mL (30.0-300.0) H 02/17/20 04:37 Total Bilirubin 0.20 mg/dL (0.1-1.2) 02/16/20 05:52 Direct Bilirubin < 0.2 mg/dL (0-0.2) 02/16/20 05:52 AST 27 units/L (5-40) 02/16/20 05:52 ALT 11 units/L (7-56) 02/16/20 05:52 Alkaline Phosphatase 68 units/L (35-129) 02/16/20 05:52 Lactate Dehydrogenase 284 units/L (91-180) H 02/17/20 04:37 C-Reactive Protein 3.20 mg/dL (0.00-1.30) H 02/17/20 04:37 Total Protein 6.4 g/dL (6.3-8.2) 02/16/20 05:52 Albumin 3.5 g/dL (3.9-5) L 02/16/20 05:52 Albumin/Globulin Ratio 1.2 % 02/16/20 05:52 Procalcitonin 0.22 ng/mL (<0.15) 02/16/20 05:52 Urine Color Yellow (Yellow) 02/14/20 20:16 Urine Turbidity Slightly-cloudy (Clear) 02/14/20 20:16 Urine pH 5.0 (5.0-7.0) 02/14/20 20:16 Ur Specific [place] 1.019 (1.003-1.030) 02/14/20 20:16 Urine Protein 100 mg/dl mg/dL (Negative) 02/14/20 20:16 Urine Glucose (UA) Neg mg/dL (Negative) 02/14/20 20:16 Urine Ketones Tr mg/dL (Negative) 02/14/20 20:16 Urine Blood Sm (Negative) 02/14/20 20:16 Urine Nitrite Neg (Negative) 02/14/20 20:16 Urine Bilirubin Neg (Negative) 02/14/20 20:16 Urine Urobilinogen 2.0 mg/dL (<2.0) 02/14/20 20:16 Ur Leukocyte Esterase Neg (Negative) 02/14/20 20:16 Urine WBC (Auto) 4.0 /HPF (0.0-6.0) 02/14/20 20:16 Urine RBC (Auto) 4.0 /HPF (0.0-6.0) 02/14/20 20:16 U Epithel Cells (Auto) < 1.0 /HPF (0-13.0) 02/14/20 20:16 Urine Mucus 1+ /HPF 02/14/20 20:16 Coronavirus (PCR) Positive (Negative) A 02/15/20 Unknown Microbiology: Microbiology 02/15/20 01:13 Peripheral/Venous Blood Culture - Preliminary NO GROWTH AFTER 48 HOURS 02/15/20 01:09 Peripheral/Venous Blood Culture - Preliminary NO GROWTH AFTER 48 HOURS Berg/IV: Voiding Method Diaper IV Catheter Type [Left Forearm INT / Saline Lock ] Active Medications - Current Medications Current Medications: Generic Name Dose Route Start Last Admin Trade Name Freq PRN Reason Stop Dose Admin Acetaminophen 650 mg 02/14/20 22:54 Tylenol PO Q4H PRN Pain MILD(1-3)/Fever >100.5/KNOWLES Azithromycin 500 mg 02/17/20 10:00 Zithromax PO 02/18/20 10:01 QDAY KADEN Dexamethasone 6 mg 02/16/20 10:00 02/16/20 09:28 Decadron IV 02/25/20 10:01 6 mg DAILY KADEN Administration Enoxaparin Sodium 40 mg 02/15/20 22:00 02/16/20 21:34 Enoxaparin SUB-Q 40 mg QDAY@2200 KADEN Administration Protocol Sodium Chloride 1,000 mls @ 75 mls/hr 02/14/20 23:00 02/17/20 05:42 Nacl 0.9% 1000 Ml IV 75 mls/hr DIRECT KADEN Administration Ceftriaxone Sodium 2 gm in 100 mls @ 200 mls/hr 02/15/20 10:00 02/16/20 09:27 Rocephin/Ns 2 Gm/100 Ml IV 200 mls/hr Q24HR KADEN Administration Protocol REMDESIVIR 100 mg/ Sodium 250 mls @ 500 mls/hr 02/16/20 21:00 02/16/20 21:34 Chloride IV 02/19/20 21:29 500 mls/hr Q24HR@2100 KADEN Administration Magnesium Hydroxide 30 ml 02/14/20 22:54 Milk Of Magnesia PO Q4H PRN Constipation Morphine Sulfate 2 mg 02/14/20 22:54 Morphine IV Q4H PRN Pain, Moderate (4-6) Ondansetron HCl 4 mg 02/14/20 22:54 Zofran IV Q8H PRN Nausea And Vomiting Sodium Chloride 10 ml 02/15/20 10:00 02/16/20 21:34 Sodium Chloride Flush Syringe 10 Ml IV 10 ml BID KADEN Administration Sodium Chloride 10 ml 02/14/20 22:54 Sodium Chloride Flush Syringe 10 Ml IV PRN PRN LINE FLUSH Sodium Chloride 50 ml 02/15/20 17:00 02/16/20 21:34 Nacl 0.9% IV 02/19/20 21:01 50 ml Q24HR@2100 KADEN Administration
[2020-02-17] MEDS ORDERED: AZITHROMYCIN 250 MG TAB PO SCH (10:00)
[2020-02-17] MEDS: cefTRIAXone/NS 2 GM/100 ML 2 GM/100 ML BAG IV SCH (11:32)
[2020-02-17] MEDS: DEXAMETHASONE 4 MG TAB PO SCH (11:32)
--- NOTE | 2020-02-17 14:46 | Progress Note ---
Assessment and Plan Cultures: Coronavirus PCR: Positive 02/15/2020 blood culture: no growth thus far A/P: 75-year-old with dementia, schizoaffective disorder, resident of an assisted living facility was admitted to the hospital with decreased appetite. There has been a Covid 19 outbreak there: #Bilateral pneumonia: Secondary to COVID-19 #Acute hypoxic respiratory failure: On oxygen. #Leukopenia: Likely secondary to COVID-19 Recs: continue IV/PO Dexamethasone 6 mg daily x 10 days IV remdesivir, D3 abx stopped prophylactic anticoagulation based on d-dimer trend ferritin, d-dimer, CRP every 2-3 days for risk stratification and to assess disease progression Nader Tapia MD, FACP [facility] ([facility] O: [phone] F: [phone] Subjective Date of service: 02/17/20 Interval history: No fever. On stable oxygen requirements. Objective - Exam Narrative Exam: Physical Exam (reviewed in chart due to PPE conservation and minimize risk of transmission) Constitutional: limited due to PPE conservation strategy Head, Ears, Nose: limited due to PPE conservation strategy Eyes: limited due to PPE conservation strategy Neck: limited due to PPE conservation strategy Oral: limited due to PPE conservation strategy Cardiovascular: limited due to PPE conservation strategy Respiratory: limited due to PPE conservation strategy GI: limited due to PPE conservation strategy Musculoskeletal: limited due to PPE conservation strategy Skin: limited due to PPE conservation strategy Hem/Lymphatic: limited due to PPE conservation strategy Psych: limited due to PPE conservation strategy Neurological: limited due to PPE conservation strategy - Constitutional Vitals: Vital Signs Temp Pulse Resp BP Pulse Ox 97.9 F 63 18 106/49 77 L 02/17/20 11:30 02/17/20 11:30 02/17/20 11:30 02/17/20 11:30 02/17/20 11:30 Temperature -Last 24 Hours Temperature 97.9 F Temperature 99.2 F Temperature 97.4 F Temperature 97.8 F Temperature 97.1 F - Labs CBC & Chem 7: 02/15/20 05:19 02/15/20 05:19 Labs: Abnormal lab results 02/17/20 02/17/20 02/17/20 Range/Units 04:37 04:37 04:37 D-Dimer 387.15 H (0-234) ng/mlDDU Ferritin 1968.0 H (30.0-300.0) ng/mL Lactate Dehydrogenase 284 H (91-180) units/L C-Reactive Protein 3.20 H (0.00-1.30) mg/dL
[2020-02-17] MEDS: REMDESIVIR 100 MG in SODIUM CHLORIDE 0.9% 250ML 250 ML IV SCH (21:51)
[2020-02-17] MEDS: SODIUM CHLORIDE 0.9% 50 ML IVPB IV SCH (21:52)
[2020-02-17] MEDS: ENOXAPARIN 40 MG/0.4 ML INJ SUB-Q SCH (21:52)
[2020-02-18] MEDS: DEXAMETHASONE 4 MG TAB PO SCH (10:47)
--- NOTE | 2020-02-18 10:47 | Progress Note ---
Assessment and Plan Assessment and plan: Very pleasant 75-year-old -[place] male patient with significant history of schizoaffective disorder, dementia From a assisted living facility, was admitted with generalized weakness loss of appetite, positive for COVID-19 And has bilateral pneumonia, acute hypoxic respiratory failure present on admission, significantly improved, received 3 doses of remdesivir Symptoms are getting better, possible discharge in 1 to 2 days if stable, evaluate for home oxygen. ID following --Covid 19 positive 02/15/2020 Isolation precautions and PPE protocols IV dexamethasone for total 10 days IV remdesivir received total 3 doses[rec by ID] Follow inflammatory markers ID following --Covid positive multifocal pneumonia; Continue empiric antibiotics Follow cultures, supportive care Oxygen titrate O2 sats to more than 90% Home oxygen evaluation at discharge --Acute hypoxic respiratory failure; present on admission requiring oxygen, titrate O2 sats to more than 90% Evaluate for home oxygen at discharge --DVT prophylaxis; Lovenox --Full CODE STATUS We will closely monitor the patient and adjust management as needed Plan of care reviewed with the patient and his nurse Possible discharge in 1 to 2 days if stable History Interval history: I have seen and examined the patient at the bedside this morning Isolation precautions PPE protocol strictly followed Patient feels slightly better Not needing any oxygen Vital signs noted Hospitalist Physical - Constitutional Vitals: Temp Pulse Resp BP Pulse Ox 98.0 F 56 L 16 112/46 95 02/17/20 22:43 02/17/20 22:43 02/17/20 22:43 02/17/20 22:43 02/17/20 22:43 General appearance: Present: no acute distress, well-nourished, other (Confused at times) - EENT Eyes: Present: PERRL, EOM intact - Neck Neck: Present: supple, normal ROM - Respiratory Respiratory: bilateral: diminished, rhonchi, negative: rales, wheezing - Cardiovascular Rhythm: regular Heart Sounds: Present: S1 & S2 - Extremities Extremities: no ischemia, No edema - Abdominal General gastrointestinal: soft, non-tender, non-distended, normal bowel sounds - Integumentary Integumentary: Present: clear, warm - Psychiatric Psychiatric: appropriate mood/affect, cooperative - Neurologic Neurologic: moves all extremities Results - Labs CBC & Chem 7: 02/15/20 05:19 02/15/20 05:19 Labs: Laboratory Last Values WBC 4.0 K/mm3 (4.5-11.0) L 02/15/20 05:19 RBC 3.98 M/mm3 (3.65-5.03) 02/15/20 05:19 Hgb 11.4 gm/dl (11.8-15.2) L 02/15/20 05:19 Hct 34.3 % (35.5-45.6) L 02/15/20 05:19 MCV 86 fl (84-94) 02/15/20 05:19 MCH 29 pg (28-32) 02/15/20 05:19 MCHC 33 % (32-34) 02/15/20 05:19 RDW 13.4 % (13.2-15.2) 02/15/20 05:19 Plt Count 206 K/mm3 (140-440) 02/15/20 05:19 Lymph % (Auto) 11.4 % (13.4-35.0) L 02/15/20 05:19 [place] % (Auto) 6.1 % (0.0-7.3) 02/15/20 05:19 Eos % (Auto) 0.0 % (0.0-4.3) 02/15/20 05:19 Baso % (Auto) 0.2 % (0.0-1.8) 02/15/20 05:19 Lymph # (Auto) 0.5 K/mm3 (1.2-5.4) L 02/15/20 05:19 [place] # (Auto) 0.2 K/mm3 (0.0-0.8) 02/15/20 05:19 Eos # (Auto) 0.0 K/mm3 (0.0-0.4) 02/15/20 05:19 Baso # (Auto) 0.0 K/mm3 (0.0-0.1) 02/15/20 05:19 Seg Neutrophils % 82.3 % (40.0-70.0) H 02/15/20 05:19 Seg Neutrophils # 3.3 K/mm3 (1.8-7.7) 02/15/20 05:19 PT 13.7 Sec. (12.2-14.9) 02/15/20 05:19 INR 1.04 (0.87-1.13) 02/15/20 05:19 D-Dimer 387.15 ng/mlDDU (0-234) H 02/17/20 04:37 Sodium 137 mmol/L (137-145) 02/15/20 05:19 Potassium 4.2 mmol/L (3.6-5.0) 02/15/20 05:19 Chloride 99.9 mmol/L (98-107) 02/15/20 05:19 Carbon Dioxide 25 mmol/L (22-30) 02/15/20 05:19 Anion Gap 16 mmol/L 02/15/20 05:19 BUN 24 mg/dL (9-20) H 02/15/20 05:19 Creatinine 1.1 mg/dL (0.8-1.3) 02/15/20 05:19 Estimated GFR > 60 ml/min 02/15/20 05:19 BUN/Creatinine Ratio 22 % 02/15/20 05:19 Glucose 107 mg/dL (75-100) H 02/15/20 05:19 Calcium 8.3 mg/dL (8.4-10.2) L 02/15/20 05:19 Ferritin 1968.0 ng/mL (30.0-300.0) H 02/17/20 04:37 Total Bilirubin 0.20 mg/dL (0.1-1.2) 02/16/20 05:52 Direct Bilirubin < 0.2 mg/dL (0-0.2) 02/16/20 05:52 AST 27 units/L (5-40) 02/16/20 05:52 ALT 11 units/L (7-56) 02/16/20 05:52 Alkaline Phosphatase 68 units/L (35-129) 02/16/20 05:52 Lactate Dehydrogenase 284 units/L (91-180) H 02/17/20 04:37 C-Reactive Protein 3.20 mg/dL (0.00-1.30) H 02/17/20 04:37 Total Protein 6.4 g/dL (6.3-8.2) 02/16/20 05:52 Albumin 3.5 g/dL (3.9-5) L 02/16/20 05:52 Albumin/Globulin Ratio 1.2 % 02/16/20 05:52 Procalcitonin 0.22 ng/mL (<0.15) 02/16/20 05:52 Urine Color Yellow (Yellow) 02/14/20 20:16 Urine Turbidity Slightly-cloudy (Clear) 02/14/20 20:16 Urine pH 5.0 (5.0-7.0) 02/14/20 20:16 Ur Specific [place] 1.019 (1.003-1.030) 02/14/20 20:16 Urine Protein 100 mg/dl mg/dL (Negative) 02/14/20 20:16 Urine Glucose (UA) Neg mg/dL (Negative) 02/14/20 20:16 Urine Ketones Tr mg/dL (Negative) 02/14/20 20:16 Urine Blood Sm (Negative) 02/14/20 20:16 Urine Nitrite Neg (Negative) 02/14/20 20:16 Urine Bilirubin Neg (Negative) 02/14/20 20:16 Urine Urobilinogen 2.0 mg/dL (<2.0) 02/14/20 20:16 Ur Leukocyte Esterase Neg (Negative) 02/14/20 20:16 Urine WBC (Auto) 4.0 /HPF (0.0-6.0) 02/14/20 20:16 Urine RBC (Auto) 4.0 /HPF (0.0-6.0) 02/14/20 20:16 U Epithel Cells (Auto) < 1.0 /HPF (0-13.0) 02/14/20 20:16 Urine Mucus 1+ /HPF 02/14/20 20:16 Coronavirus (PCR) Positive (Negative) A 02/15/20 Unknown Microbiology: Microbiology 02/15/20 01:13 Peripheral/Venous Blood Culture - Preliminary NO GROWTH AFTER 72 HOURS 02/15/20 01:09 Peripheral/Venous Blood Culture - Preliminary NO GROWTH AFTER 72 HOURS Berg/IV: Voiding Method Toilet IV Catheter Type [Left Forearm Peripheral IV ] Active Medications - Current Medications Current Medications: Generic Name Dose Route Start Last Admin Trade Name Freq PRN Reason Stop Dose Admin Acetaminophen 650 mg 02/14/20 22:54 Tylenol PO Q4H PRN Pain MILD(1-3)/Fever >100.5/KNOWLES Dexamethasone 6 mg 02/17/20 10:00 02/17/20 11:32 Decadron PO 02/25/20 10:01 6 mg DAILY KADEN Administration Enoxaparin Sodium 40 mg 02/15/20 22:00 02/17/20 21:52 Enoxaparin SUB-Q 40 mg QDAY@2200 KADEN Administration Protocol Sodium Chloride 1,000 mls @ 75 mls/hr 02/14/20 23:00 02/17/20 05:42 Nacl 0.9% 1000 Ml IV 75 mls/hr DIRECT KADEN Administration REMDESIVIR 100 mg/ Sodium 250 mls @ 500 mls/hr 02/16/20 21:00 02/17/20 21:51 Chloride IV 02/19/20 21:29 500 mls/hr Q24HR@2100 KADEN Administration Magnesium Hydroxide 30 ml 02/14/20 22:54 Milk Of Magnesia PO Q4H PRN Constipation Morphine Sulfate 2 mg 02/14/20 22:54 Morphine IV Q4H PRN Pain, Moderate (4-6) Ondansetron HCl 4 mg 02/14/20 22:54 Zofran IV Q8H PRN Nausea And Vomiting Sodium Chloride 10 ml 02/15/20 10:00 02/17/20 21:52 Sodium Chloride Flush Syringe 10 Ml IV 10 ml BID KADEN Administration Sodium Chloride 10 ml 02/14/20 22:54 Sodium Chloride Flush Syringe 10 Ml IV PRN PRN LINE FLUSH Sodium Chloride 50 ml 02/15/20 17:00 02/17/20 21:52 Nacl 0.9% IV 02/19/20 21:01 50 ml Q24HR@2100 KADEN Administration
--- NOTE | 2020-02-18 12:42 | Progress Note ---
Assessment and Plan Cultures: Coronavirus PCR: Positive 02/15/2020 blood culture: no growth thus far A/P: 75-year-old with dementia, schizoaffective disorder, resident of an assisted living facility was admitted to the hospital with decreased appetite. There has been a Covid 19 outbreak there: #Bilateral pneumonia: Secondary to COVID-19. S/P 3 days of Remdesivir. #Acute hypoxic respiratory failure: weaned off oxygen. #Leukopenia: Likely secondary to COVID-19 Recs: weaned off oxygen, will d/c Remdesivir, has received 3 days continue IV/PO Dexamethasone 6 mg daily x 10 days prophylactic anticoagulation based on d-dimer trend ferritin, d-dimer, CRP every 2-3 days for risk stratification and to a ssess disease progression ambulatory sats prior to discharge Nader Tapia MD, FACP [facility] O: [phone] F: [phone] Subjective Date of service: 02/18/20 Interval history: No fever. Weaned off oxygen. Objective - Exam Narrative Exam: Physical Exam (reviewed in chart due to PPE conservation and minimize risk of transmission) Constitutional: limited due to PPE conservation strategy Head, Ears, Nose: limited due to PPE conservation strategy Eyes: limited due to PPE conservation strategy Neck: limited due to PPE conservation strategy Oral: limited due to PPE conservation strategy Cardiovascular: limited due to PPE conservation strategy Respiratory: limited due to PPE conservation strategy GI: limited due to PPE conservation strategy Musculoskeletal: limited due to PPE conservation strategy Skin: limited due to PPE conservation strategy Hem/Lymphatic: limited due to PPE conservation strategy Psych: limited due to PPE conservation strategy Neurological: limited due to PPE conservation strategy - Constitutional Vitals: Vital Signs Temp Pulse Resp BP Pulse Ox 98.0 F 56 L 16 112/46 95 02/17/20 22:43 02/17/20 22:43 02/17/20 22:43 02/17/20 22:43 02/17/20 22:43 Temperature -Last 24 Hours Temperature 98.0 F Temperature 98.9 F - Labs CBC & Chem 7: 02/15/20 05:19 02/15/20 05:19
[2020-02-18] MEDS: ENOXAPARIN 40 MG/0.4 ML INJ SUB-Q SCH (21:04)
[2020-02-18] MEDS: SODIUM CHLORIDE 0.9% 50 ML IVPB IV SCH (21:06)
[2020-02-19 06:46] LABS: C-Reactive Protein 1.5 mg/dL (0.00-1.30)
--- NOTE | 2020-02-19 07:23 | Progress Note ---
Subjective Date of service: 02/19/20 Objective - Constitutional Vitals: Vital Signs - 12hr 02/18/20 23:07 Temperature 97.9 F Pulse Rate 52 L Respiratory 15 Rate Blood Pressure 133/66 O2 Sat by Pulse 98 Oximetry - Labs CBC & Chem 7: 02/15/20 05:19 02/15/20 05:19 Labs: Abnormal lab results 02/19/20 02/19/20 02/19/20 Range/Units 05:43 05:43 05:43 D-Dimer 296.11 H (0-234) ng/mlDDU Ferritin 1478.0 H (30.0-300.0) ng/mL Lactate Dehydrogenase 286 H (91-180) units/L C-Reactive Protein 1.50 H (0.00-1.30) mg/dL
[2020-02-19] MEDS: DEXAMETHASONE 4 MG TAB PO SCH (10:01)
--- NOTE | 2020-02-19 10:47 | Discharge Summary ---
Providers - Providers Date of Admission: 02/15/20 15:09 Date of discharge: 02/19/20 Attending physician: DUDLEY PHILLIPS 02/14/20 22:54 Consult to Physician [CONS] Routine Comment: Consulting Provider: DEEDEE FAITH Physician Instructions: Reason For Exam: PNEUMONIA R/O COVID 19 Primary care physician: [facility] Hospitalization Condition: Stable Hospital course: 75-year-old gentleman presented with low-grade fever weakness shortness of breath. Patient found to be positive for Covid pneumonia. Patient defervesced well with treatment with dexamethasone, remdesivir and further supportive care and strategies. Proning. Patient was able to wean off all oxygen. Was satting at 95% with ambulation. Patient stable to be discharge without oxygen and continue dexamethasone therapy. Patient inflammatory markers were high enough to be discharged on oral anticoagulants as well. Disposition: - TO HOME OR SELFCARE - Discharge Diagnoses (1) DVT prophylaxis Status: Acute Comment: Noemi (2) Full code status Status: Acute (3) Multifocal pneumonia Status: Acute (4) Suspected COVID-19 virus infection Status: Acute Comment: COVID-19 infection continue dexamethasone has finished antiretrovirals. Discharge on antibiotics for secondary prevention. Core Measure Documentation - Palliative Care Palliative Care/ Comfort Measures: Not Applicable - Core Measures Any of the following diagnoses?: none Exam - Constitutional Vitals: Temp Pulse Resp BP Pulse Ox 98.0 F 54 L 16 129/59 94 02/19/20 05:10 02/19/20 05:10 02/19/20 05:10 02/19/20 05:10 02/19/20 05:10 General appearance: Present: no acute distress, well-nourished - EENT Eyes: Present: PERRL ENT: hearing intact, clear oral mucosa - Neck Neck: Present: supple, normal ROM - Respiratory Respiratory effort: normal Respiratory: bilateral: CTA - Cardiovascular Heart Sounds: Present: S1 & S2. Absent: rub, click - Extremities Extremities: pulses symmetrical, No edema Peripheral Pulses: within normal limits - Abdominal General gastrointestinal: Present: soft, non-tender, non-distended, normal bowel sounds Male genitourinary: Present: normal - Integumentary Integumentary: Present: clear, warm, dry - Musculoskeletal Musculoskeletal: gait normal, strength equal bilaterally - Psychiatric Psychiatric: appropriate mood/affect, intact judgment & insight - Neurologic Neurologic: CNII-XII intact, moves all extremities Plan Activity: advance as tolerated Weight Bearing Status: Full Weight Bearing Diet: regular Special Instructions: other (Respiratory isolation wearing mask staying inside for 14 days. Social distance 14 days.) Follow up with: TONY DE LA ROSA [Other] - 3-5 Days Prescriptions: dexAMETHasone [Decadron] 6 mg PO DAILY #7 tablet Apixaban [Eliquis] 5 mg PO BID 7 Days #14 tablet
[2020-02-19 16:48] VITALS: BP 123/58
== END 2020-02-19 19:00 | disposition home or self-care (01) | DRG 177 ==
LOC: ED 17:41 → 3A 22:42 → OBSVTOIN 02-15 15:09
PROVIDERS: ADMIT Internal Medicine Geriatric Medicine; ATTEND Internal Medicine
PROC: XW033E5 Introduction of Remdesivir Anti-infective into Peripheral Vein, Percutaneous Approach, New Technology Group 5 (ICD-10-PCS; principal; 2020-02-15)
DX: U07.1 COVID-19 (principal); J96.01 Acute respiratory failure with hypoxia; J12.89 Other viral pneumonia; F03.90 Unspecified dementia, unspecified severity, without behavioral disturbance, psychotic disturbance, mood disturbance, and anxiety; F25.9 Schizoaffective disorder, unspecified; I10 Essential (primary) hypertension; D72.819 Decreased white blood cell count, unspecified
CPT/HCPCS: 36415; 71045; 80048; 80076; 81001; 82728; 82947; 83615; 84145; 85025; 85379; 85610; 86140; 87040; 96365; 96366; 96367; 96375; G0378; J0456; J0696; J1100; J1650; J7030; J7050; J8540; U0003